=== PATIENT | male | born 1995 | race African-American/Black ===

== ENCOUNTER 2016-11-24 23:14 | Emergency (ER) | payer OTHER ==
[~2016-11-24] VITALS: Ht 182.9 cm; Wt 65.6 kg
[~2016-11-24 23:14] MED LIST: KEFLEX500 MG PO; MOTRIN600 MG PO; MOTRIN800 MG PO; NOHOMEMEDS; NORCO 5/3251 TABLET PO; NORCO 7.5/321 TABLET PO; SILVADENE20 GM TP
[2016-11-25] MEDS ORDERED: MOTRIN800 MG PO (01:53)
[2016-11-25] MEDS ORDERED: PERCOCET 5/31 TABLET PO (01:53)
[2016-11-25 02:30] VITALS: BP 133/75
== END 2016-11-25 02:26 | disposition home or self-care (01) ==
LOC: EXP 23:14 → EME 23:14 → EXP 11-25 02:26
DX: S83.91XA Sprain of unspecified site of right knee, initial encounter (principal); S09.8XXA Other specified injuries of head, initial encounter; M54.2 Cervicalgia; S00.81XA Abrasion of other part of head, initial encounter; S80.811A Abrasion, right lower leg, initial encounter; V49.50XA Passenger injured in collision with unspecified motor vehicles in traffic accident, initial encounter; W22.10XA Striking against or struck by unspecified automobile airbag, initial encounter; F17.200 Nicotine dependence, unspecified, uncomplicated
CPT/HCPCS: 70450; 72125; 72170; 73552; 73590; 99281; 99284

== ENCOUNTER 2016-11-28 16:46 | Emergency (ER) | payer OTHER ==
[~2016-11-28] VITALS: Ht 172.7 cm; Wt 65.9 kg
[~2016-11-28 16:46] MED LIST changes: +PERCOCET 5/31 TABLET PO
[2016-11-28] MEDS ORDERED: NORCO 7.5/321 TABLET PO (18:40)
[2016-11-28] MEDS ORDERED: MOTRIN800 MG PO (18:40)
[2016-11-28 19:17] VITALS: BP 133/76
[2016-11-29] MEDS ORDERED: MEDROL DOSEPAK4 MG PO (01:29)
== END 2016-11-28 19:33 | disposition home or self-care (01) ==
LOC: EME 16:46
DX: M23.91 Unspecified internal derangement of right knee (principal); S93.401A Sprain of unspecified ligament of right ankle, initial encounter; V49.50XA Passenger injured in collision with unspecified motor vehicles in traffic accident, initial encounter; F17.200 Nicotine dependence, unspecified, uncomplicated
CPT/HCPCS: 73590; 73630; 93971; 99281; 99284; J1885; J3010

== ENCOUNTER 2016-11-28 23:35 | Emergency (ER) | payer OTHER ==
[~2016-11-28] VITALS: Ht 172.7 cm; Wt 65.9 kg
[2016-11-29] MEDS ORDERED: MEDROL DOSEPAK4 MG PO (01:29)
[2016-11-29 01:39] VITALS: BP 135/68
== END 2016-11-29 01:40 | disposition home or self-care (01) ==
LOC: EME 23:35
DX: T78.40XA Allergy, unspecified, initial encounter (principal); F17.200 Nicotine dependence, unspecified, uncomplicated
CPT/HCPCS: 99281; 99284; J1200; J2930; J7030; S0028